=== PATIENT | male | born 1965 | race Caucasian/White ===

== ENCOUNTER 2022-08-21 06:25 | Inpatient (IN) ==
[2022-08-21] MEDS ORDERED: SODIUM CHLORIDE 0.9% 1000ML 1,000 ML IV ONE (06:43)
[2022-08-21] MEDS ORDERED: HYDROmorphone INJ 1 MG/ML SYRINGE IV STA (06:46)
--- NOTE | 2022-08-21 06:53 | Emergency Department Note ---
Impression & Plan Priapism ED Provider Note NAME: BELEN BETANCOURT AGE: 56 SEX: M : 1965 ARRIVES VIA: Walk-In INFORMANT: Patient ED PROVIDER(S): Harinder Caputo DO CHIEF COMPLAINT: priapism HPI: Patient is a 56-year-old male who presents the ER for erection. He notes this started yesterday around 11 to 12:00 in the morning. He was moving a speaker and a staple brushed up against that his penis. Because a little bit of venous oozing and since then he has had an erection. He notes it improved slightly but then recurs. He does have prescriptions to amlodipine, beka rvastatin and venlafaxine. He denies any headache or change in vision. No chest pain or shortness of breath. No nausea vomiting diarrhea. He notes he has a constant throbbing pain in his penis but does not report a pain level with it. ROS: See above HPI for pertinent positives & negatives. A total of 10 systems reviewed and were otherwise negative. PAST MEDICAL HISTORY:See Below PAST SURGICAL HISTORY:See Below FAMILY HISTORY:See Below SOCIAL HISTORY:See Below HOME MEDICATIONS:See Below ALLERGIES:See Below VITALS:See Below PHYSICAL EXAMINATION: GENERAL: Sitting up in bed, alert, well appearing, well nourished, no distress, non-toxic EYE EXAM: normal conjunctiva. OROPHARYNX: no exudate, no erythema, lips, buccal mucosa, and tongue normal and mucous membranes are moist NECK: supple, no nuchal rigidity, no adenopathy, non-tender LUNGS: Clear to auscultation. Normal chest wall mechanics HEART: no murmurs, S1 normal and S2 normal ABDOMEN: abdomen soft, non-tender, normo-active bowel sounds, no masses, no rebound or guarding. : Testicles are nontender. With fully erect penis UPPER EXTREMITIES: upper extremities are grossly normal. LOWER EXTREMITIES: No pitting edema. NEURO EXAM: Normal sensorium, cranial nerves II-XII grossly intact, normal speech, no gross weakness of arms, no gross weakness of legs. MEDICAL DECISION MAKING: Patient is a 56-year-old male who presents the ER for erection which has been present since 10 18-12 yesterday around lunchtime. IV was established blood work is obtained. Labs show leukocytosis of 15,000. No significant anemia. BMP slightly elevated glucose. Lipase was normal. COVID-negative. Discussed with Dr. Mensah from urology and he recommended taking patient to the OR. Patient was evaluated bedside and taken emergently to the OR. Triage Nursing notes reviewed. Limited review of prior medical records performed Vital Signs: reviewed and remarkable for HTN and tachy Differential diagnosis: Testicular torsion, mass, infection, hernia, hydrocele, epididymitis, STI, trauma, intra-abdominal process, as well as other pathologies. ER treatment provided: See below Diagnostics interpreted by me: ECG: none Cardiac Monitoring: An order was placed for continuous cardiac monitoring. The monitor shows a rate of 105 with sinus rhythm. Laboratory studies: As stated above and show below. Imaging studies: See below Consultation(s): As described above in MDM Procedures: none Critical Care: None Past Med/Surg History Social History Smoking Status: Never smoker Preferred Language: [place] Feels Safe at Home: Yes Allergies Allergies Allergy/AdvReac Type Severity Reaction Status Date / Time No Known Allergies Allergy Unverified 08/21/22 07:35 Home Meds Home Medications Medication Instructions Recorded Confirmed amlodipine 10 mg tablet 10 mg PO DAILY 08/21/22 08/21/22 omeprazole 40 mg capsule,delayed 40 mg PO DAILY 08/21/22 08/21/22 release rosuvastatin 10 mg tablet (Crestor) 10 mg PO DAILY 08/21/22 08/21/22 venlafaxine 150 mg 150 mg PO QAM 08/21/22 08/21/22 capsule,extended release 24 hr Results & Data (ED) Vital Signs Vital Signs - 24 hr 08/21/22 06:29 08/21/22 07:04 08/21/22 08:40 Temperature 36.5 C 37.7 C H Temperature Source Temporal Artery Scan Oral Pulse Rate 119 H 107 H Pulse Rate [Apical] 114 H Pulse Rhythm Regular Pulse Rhythm [Apical] Regular Pulse Strength Normal Respiratory Rate 20 12 22 Respiratory Effort / Characteristics Non-Labored Spontaneous Non-Labored Spontaneous Normal for Patient Respiratory Depth Normal Normal Respiratory Pattern Regular Blood Pressure 187/109 H Blood Pressure [Left Arm] Blood Pressure [Right Arm] 170/137 H Blood Pressure Mean 135 Blood Pressure Mean [Left Arm] Blood Pressure Mean [Right Arm] 148 Blood Pressure Position Sitting Blood Pressure Position [Left Arm] Blood Pressure Position [Right Arm] Semi-fowlers Pulse Oximetry 97 95 98 Oxygen Delivery Method Room Air Room Air Sepsis Recent Fever Within 48 Hours No Sepsis New/Unexplained Change in Mental Status N/A Sepsis Action Taken by Nursing No Action Required 08/21/22 08:29 08/21/22 08:52 Temperature Temperature Source Pulse Rate Pulse Rate [Apical] 116 H Pulse Rhythm Pulse Rhythm [Apical] Pulse Strength Respiratory Rate 18 Respiratory Effort / Characteristics Respiratory Depth Respiratory Pattern Blood Pressure Blood Pressure [Left Arm] 158/104 H Blood Pressure [Right Arm] 163/117 H Blood Pressure Mean Blood Pressure Mean [Left Arm] 122 Blood Pressure Mean [Right Arm] 132 Blood Pressure Position Blood Pressure Position [Left Arm] Semi-fowlers Blood Pressure Position [Right Arm] Pulse Oximetry 96 Oxygen Delivery Method Room Air Sepsis Recent Fever Within 48 Hours Sepsis New/Unexplained Change in Mental Status Sepsis Action Taken by Nursing Laboratory Data Result diagrams: 08/21/22 11:15 08/21/22 11:15 Lab Results 08/21/22 08/21/22 08/21/22 Range/Units 06:52 07:00 07:00 WBC 13.32 H (4.8-10.8) K/ul RBC 4.85 (4.63-6.08) M/uL Hgb 15.0 (14.0-18.0) g/dl Hct 42.9 (40.1-51.0) % MCV 88.5 (80.0-100.0) fL MCH 30.9 (25.0-34.0) pg MCHC 35.0 (32.0-36.0) g/dL RDW Std Deviation 42.7 (36.4-46.3) fL RDW Coeff of Juma 13.2 (11.5-14.5) % Plt Count 233 (130-400) K/uL MPV 9.4 (9.4-12.4) fL Immature Gran % (Auto) 0.3 % Neut % (Auto) 68.2 % Lymph % (Auto) 16.4 % [place] % (Auto) 14.6 % Eos % (Auto) 0.2 % Baso % (Auto) 0.3 % Neut # (Auto) 9.08 H (1.4-6.5) K/uL Lymph # (Auto) 2.19 (1.2-3.4) K/uL [place] # (Auto) 1.94 H (0.24-0.82) K/uL Eos # (Auto) 0.03 (0-0.50) K/uL Baso # (Auto) 0.04 (0-0.2) K/uL Immature Gran # (Auto) 0.04 H (0.00-0.02) K/uL Sodium 137 (136-145) mmol/L Potassium 3.5 (3.5-5.1) mmol/L Chloride 103 (98-107) mmol/L Carbon Dioxide 24 (21-32) mmol/L Anion Gap 10 (3-11) BUN 18 (6-23) mg/dl Creatinine 1.14 (0.6-1.4) mg/dl Est Cr Clr Drug Dosing 95.3 ml/min Est GFR ( Amer) 82.9 ml/min Est GFR (Non-Af Amer) 71.5 ml/min BUN/Creatinine Ratio 15.8 (10-20) Glucose 129 H (70-99(Fasting)) mg/dl Calcium 9.1 (8.5-10.1) mg/dl Total Bilirubin 1.0 (0.2-1.0) mg/dl AST 17 (13-39) U/L ALT 19 (7-52) U/L Alkaline Phosphatase 50 (34-104) U/L Total Protein 7.8 (6.0-8.3) gm/dl Albumin 4.5 (3.4-5.0) gm/dl Globulin 3.3 (2.5-4.0) gm/dl Albumin/Globulin Ratio 1.4 (0.9-2) Lipase 50 (11-82) U/L SARS-CoV-2, RNA, NAAT NEGATIVE (NEGATIVE) Administered Medications Fentanyl Citrate (Fentanyl Citrate 100 Mcg/2 Ml Vial) 25 mcg IV Q5M PRN PRN Reason: PACU Use Only-Pain Stop: 08/21/22 17:18 Last Admin: 08/21/22 12:17 Dose: 25 mcg Documented By: Admin: 08/21/22 12:11 Dose: 25 mcg Documented By: AD Discontinued Medications Hydromorphone HCl (Hydromorphone Inj 1 Mg/Ml Syringe) 1 mg IV NOW STA Stop: 08/21/22 06:47 Last Admin: 08/21/22 07:40 Dose: Not Given Documented By: TRH Sodium Chloride (Nss 1000ml) 1,000 mls @ 999 mls/hr IV .Q1H1M ONE Stop: 08/21/22 07:43 Last Admin: 08/21/22 07:08 Dose: 999 mls/hr Documented By: JONATHAN Lidocaine HCl (Lidocaine 1% Local 20 Ml Vial) Confirm Administered Dose 20 ml .ROUTE .STK-MED ONE Stop: 08/21/22 09:53 Last Admin: 08/21/22 10:43 Dose: 20 ml Documented By: [id number] Phenylephrine HCl (Phenylephrine Hcl 10 Mg/Ml Vial) 10 mg ITC ONE ONE Stop: 08/21/22 08:46 Last Admin: 08/21/22 10:44 Dose: 4.2 mcg Documented By: [id number] Discharge Plan Visit Data Chief Complaint: Penis Pain Stated Complaint: HURT GROIN WHILE MOVING FURNITURE ED Provider: Harinder Caputo Discharge Problem: Priapism Discharge Instructions Interventions: ED Discharge Assessment Last Done: 08/21/22 08:36
[2022-08-21 07:18] LABS: Basophils # (auto) 0.04 K/uL (0-0.2); Basophils % (auto) 0.3 %; Eosinophils # (auto) 0.03 K/uL (0-0.50); Eosinophils % (auto) 0.2 %; Hematocrit (blood only) 42.9 % (40.1-51.0); Immature Granulocytes # (auto) 0.04 K/uL (0.00-0.02); Immature Granulocytes % (auto) 0.3 %; Lymphocytes # (auto) 2.19 K/uL (1.2-3.4); Lymphocytes % (auto) 16.4 %; Mean Corpuscular Hemoglobin 30.9 pg (25.0-34.0); Mean Corpuscular Volume 88.5 fL (80.0-100.0); Mean Platelet Volume 9.4 fL (9.4-12.4); Monocytes # (auto) 1.94 K/uL (0.24-0.82); Monocytes % (auto) 14.6 %; Neutrophils # (auto) 9.08 K/uL (1.4-6.5); Neutrophils % (auto) 68.2 %; Platelet Count 233 K/uL (130-400); RDW Coefficient of Variation 13.2 % (11.5-14.5); RDW Standard Deviation 42.7 fL (36.4-46.3); Red Blood Count 4.85 M/uL (4.63-6.08); White Blood Count 13.32 K/ul (4.8-10.8)
[2022-08-21] MEDS ORDERED: fentaNYL citrate 100 MCG/2 ML VIAL ONE (07:37)
[2022-08-21] MEDS ORDERED: MIDAZOLAM HCL 1 MG/ML 2ML VIAL ONE ×2 (07:37→09:46)
[2022-08-21] MEDS ORDERED: ONDANSETRON INJ 2 MG/ML 2 ML VIAL ONE (07:38)
[2022-08-21] MEDS ORDERED: PROPOFOL IV EMULSION 10 MG/ML 20 ML VIAL IV ONE ×7 (07:38→10:48)
[2022-08-21] MEDS ORDERED: DEXAMETHASONE SOD INJ 4 MG/ML VIAL ONE (07:38)
[2022-08-21 07:45] LABS: Albumin Globulin Ratio 1.4 (0.9-2); Albumin Level 4.5 gm/dl (3.4-5.0); BUN Creatinine Ratio 15.8 (10-20); Calcium 9.1 mg/dl (8.5-10.1); Creatinine Clr Calc Pharmacy 95.3 ml/min; Est GFR (African American) 82.9 ml/min; Est GFR (Non-African American) 71.5 ml/min; Globulin 3.3 gm/dl (2.5-4.0); Potassium 3.5 mmol/L (3.5-5.1); Total Protein 7.8 gm/dl (6.0-8.3)
--- NOTE | 2022-08-21 07:59 | Urology Consultation ---
Date of Consultation August 21, 2022 Assessment & Plan (1) Priapism: Plan -We will plan to proceed to the OR for management of priapism, possible shunt. -Risks and benefits to be reviewed with patient by Dr. Mensah. -See attending note for further details Attending note: Independently assessed, examined, evaluated, and interviewed. Patient had developed erection approximately between 11 AM and 1 PM yesterday. Patient has had erections since then. Has become more more uncomfortable. Is not having any discoloration. Patient had some sort of injury. Thought he had been poked with some sort of piece of metal possibly is stable. Developed issues shortly afterwards. Patient is having considerable issues. Has not had any relief of erection since development. Denies illicit drug use. Denies utilization of trazodone or other medications. Does have a family history of a uncle who had shortly after with some sort of blood disorder though he is unaware of exactly what it is. Denies any major family history of other blood disorders or problems such as thalassemia or sickle cell disease. Denies utilization of erectile medications or other medications that may be contributing. Patient has issues with hypertension and other minor chronic medical issues such as hyperlipidemia. Has GERD as well. Patient has not had any major surgeries on the system. No history of major trauma to the pelvis. Patient has been stable on the majority of his meds without any major changes over the last few months. On inspection patient has tenderness of the glans and penile tissue. Has a significant priapism with discomfort. Extensively reviewed options including injectable options, shunts, other interventions. Discussed loss of erectile function. Discussed time since development of priapism and increasing the risk of major issues with erectile function afterwards. Discussed concerns and issues. Discussed possible concerns and bother. Reviewed surgical and procedural intervention. Discussed bedside option. At this point patient's discomfort as well as the length of time with the priapism and concerns about inability to reduce with irrigation or injection patient is interested in proceeding with intraoperative intervention. Extensively reviewed options. Discussed risk and benefits. Reviewed risks and benefits extensively with patient. Patient has lab work pending. Currently has a small white count. Is tachycardic and hypertensive possibly due to the discomfort. No other major medical changes. Examination had shown the rigid and tender penile tissue without discoloration, signs of ecchymosis, or signs of redness erythema or infection. No signs of injury or trauma. Reviewed surgical management with shunt. Discussed different options including distal shunt. Reviewed expectations and healing. Discussed possible injection and irrigation for management of priapism. Discussed recurrence and possible issues related to scarring. Extensively reviewed options. Due to the emergent nature of priapism and need for intervention likely under anesthesia with sedation extensively reviewed the risks related to this. Discussed possible complications and issues. These were all reviewed extensively. Patient understands and wishes to proceed. An extensive conversation was had regarding the procedure itself as well as possible management options and wall intraoperative. Patient is agreeable to proceed with the possible management of priapism and possible shunt to be done under sedation. Risks and benefits discussed at length for procedure. These include bleeding, infection, injury to surrounding tissues or organs, and risks associated with anesthesia. Patient states understanding and agrees to proceed. Will sign consent and proceed with urgent/emergent procedure. Plan for management of priapism and possible shunt. History of Present Illness Reason for Consultation: Priapism History of Present Illness 56-year-old male who presented to the ER today for an erection that started yesterday around 1112 in the morning. He reported that he was moving a speaker and a staple brushed up against his penis causing a little bleeding and since then he has had an erection. He noted that it improved slightly but then recurred. Urology consulted urgently for priapism. On arrival, he was afebrile. Hypertensive (187/109) and tachycardic (119). White count 13.32, creatinine 1.14. COVID test negative. Allergies Allergy/AdvReac Type Severity Reaction Status Date / Time No Known Allergies Allergy Unverified 08/21/22 07:35 Home Medications Medication Instructions Recorded Confirmed Type amlodipine 10 mg tablet 10 mg PO DAILY 08/21/22 08/21/22 History omeprazole 40 mg capsule,delayed 40 mg PO DAILY 08/21/22 08/21/22 History release rosuvastatin 10 mg tablet (Crestor) 10 mg PO DAILY 08/21/22 08/21/22 History venlafaxine 150 mg 150 mg PO QAM 08/21/22 08/21/22 History capsule,extended release 24 hr Patient History Social History Smoking Status: Never smoker Preferred Language: [place] Feels Safe at Home: Yes Review of Systems Review of Systems: All systems reviewed & are unremarkable except as noted in HPI & below Physical Exam Constitutional: no acute distress Neck: normal visual inspection Respiratory: normal respiratory effort; no respiratory distress and no labored breathing Gastrointestinal (Abdomen): Inspection/Auscultation: abdomen normal to inspection Musculoskeletal: Head/Neck/Chest: normocephalic Skin: no rashes Neurologic: awake Psychiatric: A+Ox3, euthymic affect Results & Data ([facility]) Vital Signs (Past 12 Hours) Vital Signs Temp Pulse Resp BP Pulse Ox O2 Del Method 08/21/22 07:04 107 H 12 95 08/21/22 06:29 36.5 C 119 H 20 187/109 H 97 Room Air PG Care Time/CCT Total # of Minutes Spent Total Time Spent with Patient: Total time spent is greater than 50% in coordination of care (as documented) at patient's floor/unit and/or counseling patient: Coding Level of Care Code 09122 Office/OBS Consult Lvl 5 Diagnoses Priapism N48.30
--- NOTE | 2022-08-21 08:16 | Anesthesiology Consultation ---
Date of Service August 21, 2022 Assessment & Plan (1) Encounter for pre-operative examination: Chart Review Chart Review: Acceptable Risk for Surgery and Patient NOT seen in Pre Admission Testing Consults Requested none History Surgery Operation Date: 08/21/22 09:45 Proposed Procedures p Management Priapsim Possible Shunt - Rito Mensah, Height/Weight Height: 6 ft Weight: 116.3 kg Allergies Allergy/AdvReac Type Severity Reaction Status Date / Time No Known Allergies Allergy Unverified 08/21/22 07:35 Medications Home Medications Medication Instructions Recorded Confirmed Last Taken amlodipine 10 mg tablet 10 mg PO DAILY 08/21/22 08/21/22 08/20/22 omeprazole 40 mg capsule,delayed 40 mg PO DAILY 08/21/22 08/21/22 08/20/22 release rosuvastatin 10 mg tablet (Crestor) 10 mg PO DAILY 08/21/22 08/21/22 08/20/22 venlafaxine 150 mg 150 mg PO QAM 08/21/22 08/21/22 08/20/22 capsule,extended release 24 hr Social History Smoking Status: Never smoker Physical Exam Vital Signs Last Vital Signs Temp 97.7 F 08/21/22 06:29 Pulse 107 H 08/21/22 07:04 Resp 12 08/21/22 07:04 BP 187/109 H 08/21/22 06:29 Pulse Ox 95 08/21/22 07:04 O2 Del Method 08/21/22 06:29 Testing Laboratory Results 08/21/22 07:00 08/21/22 07:00
[2022-08-21] MEDS ORDERED: PHENYLEPHRINE HCL 10 MG/ML VIAL ITC ONE (08:45)
[2022-08-21] MEDS ORDERED: KETAMINE 50 MG/5 ML SYRINGE ONE (08:56)
[2022-08-21] MEDS ORDERED: ONDANSETRON INJ 2 MG/ML 2 ML VIAL IV PRN ×2 (09:18→14:20)
[2022-08-21] MEDS ORDERED: ATROPINE SULFATE 0.1 MG/ML 10ML SYR IV PRN (09:18)
[2022-08-21] MEDS ORDERED: ePHEDrine sulfate 50 MG/ML AMP IV PRN (09:18)
[2022-08-21] MEDS ORDERED: GLYCOPYRROLATE 0.2 MG/ML VIAL ONE (09:47)
[2022-08-21] MEDS ORDERED: LIDOCAINE 1% LOCAL 20 ML VIAL ONE (09:52)
[2022-08-21] MEDS ORDERED: ceFAZolin 330 MG/ML 1 GM VIAL ONE (09:52)
--- NOTE | 2022-08-21 11:09 | Operative Report ---
PG Post Operative Report Pre & Post Diagnosis Operation Date: 08/21/22 09:45 Pre-Op Diagnosis: Priapism Post-Op Diagnosis: Priapism I identified the patient and participated in the time-out.: Yes Procedure Operation Date: 08/21/22 09:45 Actual Procedures p Aspiration, irrigation, Injection of Phenylephrine, and distal shunt x 2 for Management Priapism - Rito Mensah, Surgeon Rito Mensah, II, DO [employer] None Estimated Blood Loss 20 Findings Consistent with Post-Op Diagnosis Significant ischemic priapism that developed approximately 24 hours ago and continues to be problematic and bothersome with significant tenderness. Dark old appearing blood aspirated. Blood gas was unable to be calculated due to the significant pH. Consistent with ischemic priapism Specimens Penile blood flow blood gas Drains None Anesthesia Type MAC Complications none Disposition Disposition: Recovery Room Indications Significant likely ischemic priapism for greater than 20 hours with bother and issues. Risks and benefits discussed at length. Description of Procedure Patient was informed of all risks and benefits and all questions answered. He gave consent for the procedure. The patient was brought back to the operating room. Patient was placed under anesthesia in the supine position. Patient was prepped and draped in the regular sterile fashion. A time out was completed. The correct patient and procedure were identified and confirmed. Patient to be given Ancef preoperatively. With the time out completed and the patient prepped, the glans was manipulated. The base of the penis was assessed and a penile block was completed with lidocaine 1% plain local injected into the subcutaneous tissues at the dorsal base of penis after aspirating without blood or issues. An additional injection was done on the glans on both sides as well as a small amount in the midshaft lateral edge on the right side. Starting with a 16-gauge needle and aspiration was completed. A blood gas was sent. During the case this came back as unable to be calculated due to likely the extremely low pH. A very dark thickened old ischemic appearing blood was aspirated. This did achieve some degree of detumescence however patient immediately started to regain tumescence. At this point the phenylephrine was utilized. A 500 mcg/mL concentration was utilized with 0.2 mL injected every 5 minutes for a total of 9 injections. This was done in concordance with the remaining ports of the procedure. Patient had no major changes in heart rate or other issues during the injections. These did also appear to have some degree of detumescenet affect however patient remained with the erection. Copious amounts of saline was then used to irrigate the corporal bodies. Irrigation was completed freely without major issue. An additional 16-gauge needle was then utilized. The 16-gauge needles had been placed in the glans on the right than on the left into the distal tip of the corporal bodies. Irrigation was completed through both areas. A moderate amount of success was achieved with this however once the irrigation was stopped the patient did once again start to achieve tumescence and concerning for recurrence of priapism. After significant attempts to irrigate, aspirate, and inject phenylephrine with only limited success at this point it was decided to proceed with a more formal shunt procedure. Care was taken to monitor the important structures of the penis and meatus and glans. A 11-blade scalpel was used to make the distal incision first on the right and then on the left. A stab incision was made this was turned 90 degrees and then removed. A large amount of old appearing blood was able to be drained in this matter. The irrigation was continued through this process. Additional injections were also done through the process. The detumescence was achieved with this. However throughout the process and through the banding process patient did start to achieve partial erections again. Care was taken then to utilize a single Monocryl 4-0 suture to complete a simple interrupted suture into the skin of the glans over each of the openings. This did allow continued drainage if needed. The area was cleaned. A bandage was then wrapped around the entire area with a Coban dressing wrapped around as the last layer. The Kevin bandage was then wrapped around the penis. This allowed somewhat pressure on this. Ice will be placed on in the PACU area. The patient was cleaned, aroused from anesthesia, and transferred to the pacu in stable condition having tolerated the procedure well with no complications. I was present and participated in all aspects of the procedure. All counts were correct x 2. We will plan to monitor the patient moving forward. May need to monitor overnight in order to monitor heart rate as well as to make sure there is no return of priapism. We will plan supportive care. Continue to monitor. Will likely need follow-up in approximately 2 to 3 weeks to reevaluate I attest to the content of the Intraoperative Record and any orders documented therein. Any exceptions are noted below.
[2022-08-21 11:27] LABS: Basophils # (auto) 0.04 K/uL (0-0.2); Basophils % (auto) 0.3 %; Eosinophils # (auto) 0.03 K/uL (0-0.50); Eosinophils % (auto) 0.2 %; Hematocrit (blood only) 41.1 % (40.1-51.0); Immature Granulocytes # (auto) 0.06 K/uL (0.00-0.02); Immature Granulocytes % (auto) 0.4 %; Lymphocytes # (auto) 2.67 K/uL (1.2-3.4); Lymphocytes % (auto) 17.4 %; Mean Corpuscular Hemoglobin 31.3 pg (25.0-34.0); Mean Corpuscular Hgb Conc 34.1 g/dL (32.0-36.0); Mean Corpuscular Volume 91.7 fL (80.0-100.0); Mean Platelet Volume 9.2 fL (9.4-12.4); Monocytes # (auto) 1.72 K/uL (0.24-0.82); Monocytes % (auto) 11.2 %; Neutrophils # (auto) 10.84 K/uL (1.4-6.5); Neutrophils % (auto) 70.5 %; Platelet Count 243 K/uL (130-400); RDW Coefficient of Variation 13.3 % (11.5-14.5); RDW Standard Deviation 45.1 fL (36.4-46.3); Red Blood Count 4.48 M/uL (4.63-6.08); White Blood Count 15.36 K/ul (4.8-10.8)
--- NOTE | 2022-08-21 11:34 | Anesthesiology Progress Note ---
Date of Service August 21, 2022 Anesthesia Post Procedure Vital Signs Vital Signs: Temp Pulse Pulse Resp BP BP BP 08/21/22 11:25 109 H 14 149/105 H 08/21/22 11:15 110 H 15 217/100 H 08/21/22 11:09 97.5 F L 108 H 25 H 183/101 H 08/21/22 08:52 158/104 H 08/21/22 08:29 116 H 18 163/117 H 08/21/22 08:40 99.9 F H 114 H 22 170/137 H 08/21/22 07:04 107 H 12 08/21/22 06:29 97.7 F 119 H 20 187/109 H Pulse Ox O2 Del Method O2 Flow Rate 08/21/22 11:25 95 Room Air 08/21/22 11:15 98 Oxymask 5 08/21/22 11:09 98 Oxymask 5 08/21/22 08:52 08/21/22 08:29 96 Room Air 08/21/22 08:40 98 Room Air 08/21/22 07:04 95 08/21/22 06:29 97 Room Air Transfer of Care Handoff Completed per policy Notes Mental Status: alert / awake / arousable and participated in evaluation Patient Amnestic to Procedure: Yes Nausea / Vomiting: adequately controlled Pain: adequately controlled Airway Patency, RR, SpO2: stable & adequate BP & HR: stable & adequate Hydration State: stable & adequate Anesthetic Complications: no major complications apparent and Pt Satisfied with anesthetic care
[2022-08-21 11:56] LABS: BUN Creatinine Ratio 11.9 (10-20); Calcium 8.8 mg/dl (8.5-10.1); Creatinine Clr Calc Pharmacy 80.4 ml/min; Est GFR (African American) 67.5 ml/min; Est GFR (Non-African American) 58.3 ml/min; Potassium 4.3 mmol/L (3.5-5.1)
[2022-08-21] MEDS: fentaNYL citrate 100 MCG/2 ML VIAL IV PRN ×3 (12:11→12:47)
[2022-08-21] MEDS ORDERED: ACETAMINOPHEN 325 MG TAB PO PRN (14:20)
[2022-08-21] MEDS ORDERED: MoRPHine SULFATE 4 MG/ML 1 ML CARP\\VIAL IV PRN (14:20)
[2022-08-21] MEDS ORDERED: MoRPHine SULFATE 2 MG/ML CARP IV PRN (14:20)
[2022-08-21] MEDS: oxyCODONE HCL IR 5 MG TAB (IMMEDIATE RELEASE) PO PRN ×2 (16:04→23:03)
[2022-08-21] MEDS: LACTATED RINGER'S 1,000 ML IV SCH (16:06)
[2022-08-21] MEDS: ceFAZolin 2000MG 2,000 MG/15 ML SYR IV SCH ×2 (16:09→23:04)
[2022-08-21 20:09] LABS: Appearance Urine Cloudy (Clear); Bacteria Urine Automated Negative (Negative); Bilirubin Urine Negative (Negative); Blood Urine 1+ (Negative); Color Urine Yellow; Glucose Urine UA Negative (Negative); Ketones Urine Trace (Negative); Leukocyte Esterase Urine 1+ (Negative); Nitrite Urine Negative (Negative); Protein Urine Trace (Negative); RBC Urine Automated 0-4 /hpf (0-4); Specific Gravity Urine 1.027 (1.000-1.030); Urobilinogen Urine Negative (Negative); pH Urine 5.5 (4.5-7.5)
[2022-08-22] MEDS: LACTATED RINGER'S 1,000 ML IV SCH ×2 (02:41→12:34)
[2022-08-22] MEDS ORDERED: ACETAMINOPHEN 325 MG TAB PO PRN (03:50)
[2022-08-22] MEDS: oxyCODONE HCL IR 5 MG TAB (IMMEDIATE RELEASE) PO PRN ×2 (04:07→10:59)
--- NOTE | 2022-08-22 04:07 | Communication Note ---
Date of Service: August 22, 2022 I was notified by RN the patient had a low-grade fever. Patient's vitals were assessed and needed temperature 37.9. Patient has as needed Tylenol ordered for pain however not for fever so the order was changed so that he may take some Tylenol for low-grade fever. RN also noted concern the patient had blistering on the glans of his penis. Patient was visited at bedside and patient was noted to have a large what appeared to be fluid-filled blister on the glans of his penis on the left lateral aspect just superior to a suture that was placed. Glans of patient's penis did appear pink and viable without any eschars or dusky appearance. In addition the patient was noted to have a semierect penis which was wrapped with previously placed dressings. It is noteworthy to mention the patient did have previous dressings placed over the glans of his penis but these were removed at Dr. Mensah instructions earlier on the evening of 08/21/2022. The patient does report some minor pain however he notes that it is not as significant as what he noted upon arrival to the hospital earlier this morning. Patient also notes that he is able to void without difficulty and he denies any hematuria. I discussed the above with Dr. Mensah. He notes that the blistering may be related to the suture material that he placed as well as irritation from previ ously placed dressings that were taken down. For the present time he recommends simply applying a triple antibiotic ointment and monitoring for the present time. Orders were placed for triple antibiotic ointment.
[2022-08-22] MEDS: NEOMYCIN/POLYMYX/BACITR OINT 15 GM TUBE EXT PRN ×2 (04:44→08:22)
--- NOTE | 2022-08-22 08:04 | Urology Progress Note ---
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 Admission and Anticipated Discharge Date Admission Date: August 21, 2022 Subjective priapism yesterday - unfortunately, he has not improved overnight despite irrigation/drainage and an operative shunt still in pain today low grade temps overnight Physical Exam Physical Exam: shunt incisions appropriate full erection blisters on the glans Results & Data ([facility]) Vital Signs (Past 12 Hours) Vital Signs Temp Pulse Pulse Resp BP Pulse Ox O2 Del Method 08/22/22 07:37 84 08/22/22 03:18 37.9 C H 100 H 18 161/87 H 94 Room Air 08/21/22 23:20 37.5 C 105 H 20 149/89 H 93 Room Air 08/22/22 00:05 96 H PG Care Time/CCT Total # of Minutes Spent Total Time Spent with Patient: Total time spent is greater than 50% in coordination of care (as documented) at patient's floor/unit and/or counseling patient: Coding Level of Care Code 14822 Subseq Hosp Care Lvl 2 Diagnoses Priapism N48.30
[2022-08-22 08:37] LABS: Basophils # (auto) 0.04 K/uL (0-0.2); Basophils % (auto) 0.3 %; Eosinophils # (auto) 0.07 K/uL (0-0.50); Eosinophils % (auto) 0.4 %; Hematocrit (blood only) 34.8 % (40.1-51.0); Hemoglobin 11.8 g/dl (14.0-18.0); Immature Granulocytes # (auto) 0.06 K/uL (0.00-0.02); Immature Granulocytes % (auto) 0.4 %; Lymphocytes % (auto) 22.1 %; Mean Corpuscular Hgb Conc 33.9 g/dL (32.0-36.0); Mean Corpuscular Volume 91.3 fL (80.0-100.0); Mean Platelet Volume 9.4 fL (9.4-12.4); Monocytes # (auto) 1.85 K/uL (0.24-0.82); Monocytes % (auto) 11.7 %; Neutrophils # (auto) 10.33 K/uL (1.4-6.5); Neutrophils % (auto) 65.1 %; Platelet Count 204 K/uL (130-400); RDW Coefficient of Variation 13.4 % (11.5-14.5); Red Blood Count 3.81 M/uL (4.63-6.08); White Blood Count 15.85 K/ul (4.8-10.8)
[2022-08-22] MEDS ORDERED: PANTOprazole 40 MG TAB PO SCH (09:00)
[2022-08-22] MEDS ORDERED: VENLAFAXINE HCL XR 150 MG CAPXR PO SCH (09:00)
[2022-08-22] MEDS ORDERED: amLODIPine BESYLATE 5 MG TAB PO SCH (09:00)
[2022-08-22] MEDS ORDERED: ROSUVASTATIN CALCIUM 10 MG TAB PO SCH (09:00)
[2022-08-22 10:22] LABS: BUN Creatinine Ratio 12.6 (10-20); Calcium 8.3 mg/dl (8.5-10.1); Creatinine Clr Calc Pharmacy 90.5 ml/min; Est GFR (African American) 78.7 ml/min; Est GFR (Non-African American) 67.9 ml/min; Potassium 3.5 mmol/L (3.5-5.1)
[2022-08-22] MEDS ORDERED: PHENYLEPHRINE HCL 10 MG/ML VIAL ITC ONE (10:45)
[2022-08-22] MEDS ORDERED: LIDOCAINE 2% JELLY 5 ML TUBE ONE (11:10)
--- NOTE | 2022-08-22 11:41 | Discharge Summary ---
Date of Service August 22, 2022 Principal Diagnosis Priapism Discharge Exam Still with significant tumescence Discharge Data Allergies Allergy/AdvReac Type Severity Reaction Status Date / Time No Known Allergies Allergy Unverified 08/21/22 07:35 Consultations 08/21/22 06:47 Consult Urology Stat Procedures Performed Operation Date: 08/21/22 09:45 Actual Procedures p Management Priapism (Not Applicable) - Rito Mensah DO Hospital Course (1) Priapism: Plan Patient admitted through the emergency room yesterday Underwent attempted irrigation of priapism in the ER before progressing to the operating room for a surgical al ghorab shunt Unfortunately his prep is not did not resolve On evaluation this morning he was still fully tumesced Attempted repeat drainage and phenylephrine irrigation on the morning of postoperative day 1 and had only modest improvement Unfortunate we are unable to drain it as I suspect the blood is all congealed He is comfortable He understands that there is a significant risk of fibrosis long-term Total Time Total Time Spent Total Time Spent (In Minutes): 30 Discharge Plan Discharge Items Patient Disposition: Home - Self-Care Reason For Visit: POST OP Discharge Diagnosis: priapism Activity: Per Instructions section Lifting: Gradually increase as tolerated Bathing: No limitations Sexual Activity: Wait until after follow-up appointment Exercise/Sports: Gradually increase as tolerated Non-emergency contact: Urologist Call non-emergency contact if: you have any medication questions, your pain is worsening, you have a fever and your temperature is above 101.5 Follow-up/Referrals: Anshul Jiménez DO [Primary Care Provider] - Diet: Regular Addtl Attending Provider Instructions: It is ok to shower. Bruising and swelling of the penis as expected. If the skin begins to turn to a dark color, etc., please contact us Pending Studies at Discharge: No Stand-Alone Forms: [employer], Smoking Cessation Medications and DC Order Prescriptions: New hydrocodone-acetaminophen 5-325 mg tablet 1 tab PO Q6H PRN (Reason: pain) Qty: 15 0RF sulfamethoxazole-trimethoprim [Bactrim DS] 800-160 mg tablet 1 tab PO BID Qty: 10 0RF Continued venlafaxine 150 mg Capsule,Extended Release 24hr 150 mg PO QAM amlodipine 10 mg Tablet 10 mg PO DAILY rosuvastatin [Crestor] 10 mg Tablet 10 mg PO DAILY omeprazole 40 mg Capsule,Delayed Release(Dr/Ec) 40 mg PO DAILY Discharge Orders: Discharge Order (Routine); Ordered 08/22/22 Ordered By: Go Brown Admission Data Admit Date/Time: 08/21/22 11:09 Attending Provider: Rito Mensah Admit Provider: Rito Mensah Primary Care Provider: Anshul Jiménez Other Providers: Rito Mensah Coding Level of Care Code D/C DAY MANAGEMENT <30 MINS Diagnoses Priapism N48.30
== END 2022-08-22 14:16 | disposition home or self-care (01) | DRG 730 ==
LOC: ED 06:25 → OR 08:36 → 2W 08:36 → PACUINP 11:09 → 2W 14:19
DX: N48.39 Other priapism; Y92.89 Other specified places as the place of occurrence of the external cause; F41.8 Other specified anxiety disorders; I10 Essential (primary) hypertension; X50.0XXA Overexertion from strenuous movement or load, initial encounter; R50.82 Postprocedural fever; K21.9 Gastro-esophageal reflux disease without esophagitis